=== PATIENT | male | born 1955 | race Caucasian/White ===

== ENCOUNTER 2022-02-25 12:31 | Emergency (ER) | payer OTHER | END 2022-02-25 15:20 | disposition home or self-care (01) | LOC: JD.ED 12:31 | DX: U07.1 COVID-19 (principal); I11.0 Hypertensive heart disease with heart failure; I50.9 Heart failure, unspecified; E11.9 Type 2 diabetes mellitus without complications; Z87.891 Personal history of nicotine dependence | CPT/HCPCS: 99282; 99284; U0002 ==